=== PATIENT | male | born 1960 | race Caucasian/White ===

== ENCOUNTER 2025-02-16 10:52 | Outpatient (OUT) | payer MEDICARE, SELFPAY ==
--- OUTSIDE RECORDS SUMMARY | 2025-02-07 16:00 | XMS_ITS | Encounter Summary ---
Author Organization [facility] Healthcare Address [address] [place] [address] Care Team Providers Care Refractory Worker Name Role Phone Cayden Hernandez MD Primary Care Provider [phone] Reason for Referral * Imaging (Routine) - Authorized Specialty Diagnoses / Procedures Referred By Contac t Referred To Contact Radiology Diagnoses History of smoking 25-50 pack years Encounter for abdominal aortic aneurysm (AAA) screening Procedures Vascular US abdominal aorta anuerysm AAA screening Cayden Hernandez MD [address] [place] [address] Phone: tel: fax: [facility] [address] [place] [address] Phone: tel: fax: Referral ID Status Reason Start Date Expiration Date V isits Requested Visits Authorized [id number] Authorized 02/07/2025 08/06/2025 1 1 * Imaging (Routine) - Authorized Specialty Diagnoses / Procedures Referred By Contac t Referred To Contact Radiology Diagnoses History of smoking 25-[address] lung screening low dose Cayden Hernandez MD [address] [place] [address] [address] [place] [address] Phone: tel: fax: [facility] [address] [place] [address] Phone: tel: fax: Referral ID Status Reason Start Date Expiration Date V isits Requested Visits Authorized [id number] Authorized 02/07/2025 08/06/2025 1 1 Reason for Visit * Reason Comments Medicare Annual Wellness Visit Subsequen t Med Refill Amlodipine,trelegy,c oreg--[facility] Encounter Details Date Type Department Care Team (Late st Contact Info) Description 02/07/2025 4:00 PM EDT Office Visit [facility] [address] [facility] [address] [place] [address] Cayden Hernandez MD [address] [facility] [address] [place] [address] Routine general medical examination at health care facility (Primary Dx); ACP (advance care planning); History of smoking 25-50 pack years; Encounter for screening for malignant neoplasm of colon; Encounter for abdominal aortic aneurysm (AAA) screening; Pulmonary emphysema, unspecified emphysema type (HCC); Benign essential hypertension ; Gastroesophageal reflux disease with esophagitis without hemorrhage; Gastritis and duodenitis; Prostate cancer screening; Screening for viral disease; COPD exacerbation (HCC) Social History Tobacco Use Types Packs/Day Years Used Date Smoking Tobacco: Former Cigarettes 1.5 30 1 2014 Smokeless Tobacco: Never Alcohol Use Standard Drinks/Week Comments Not Currently 0 (1 standard drink = 0.6 oz pur e alcohol) PHQ-2 Answer Date Recorded Patient Health Questionnaire-2 Score 0 02/07/2025 Sex and Gender Information Value Date Recorded Sex Assigned at Not on file Legal Sex Male 6:58 PM EDT Gender Identity Not on file Sexual Orientation Not on file documented as of this encounter Last Filed Vital Signs Vital Sign Reading Time Taken Comments Blood Pressure 138/82 02/07/2025 3:00 PM EDT Pulse 74 02/07/2025 3:00 PM EDT Temperature - - Respiratory Rate - - Oxygen Saturation 95% 02/07/2025 3:00 PM EDT Inhaled Oxygen Concentration - - Weight 71.7 kg (158 lb) 02/07/2025 3:00 PM EDT Height 172.7 cm (5' 8 ) 02/07/2025 3:00 PM EDT Body Mass Index 24.02 02/07/2025 3:00 PM EDT documented in this encounter Functional Status * Over the past 2 weeks, how often have you been bothered by any of the following problems? Question Answer Date of Assessment Author Little interest or pleasure in doing things Not at all 02/07/2025 3:00 PM EDT Selina Dorantes LP N Feeling down, depressed, or hopeless Not at all 02/07/2025 3:00 PM EDT Selina Dorantes LP N Patient Health Questionnaire -2 Score 0 02/07/2025 3:00 PM EDT Selina Dorantes LP N documented as of this encounter Progress Notes * Cayden Hernandez MD - 02/07/2025 4:00 PM EDT Images from the original note were not included. Subjective : Chief Complaint: Nelson Cortez is an 64 y.o. male here for an annual wellness visit. I have reviewed and reconciled the history and medication list with the patient today. Current Outpatient Medications Medication Sig Dispense Refill amLODIPine (Norvasc) 5 MG tablet Take 1 tablet (5 mg) by mouth in the morning. 100 tablet 3 aspirin (ASPIR) 81 MG EC tablet Take 81 mg by mouth in the morning. carvedilol (Coreg) 25 MG tablet Take 1 tablet (25 mg) by mouth in the morning and 1 tablet (25 mg) in the evening. Take with meals. 200 tablet 3 Ejinwvjwkvm-Jmsyuixmh-Pfwmxf (Trelegy Ellipta) 100-62.5-25 MCG/ACT aerosol powder Inhale 1 Inhalation Daily 3 each 3 No current facility-administered medications for this visit. Review of Systems List of current healthcare providers: Patient Care Team: Cayden Hernandez MD as PCP - General (Internal Medicine) Medicare Annual Visit Over the past 2 weeks, how often have you been bothered by any of the following problems? Little interest or pleasure in doing things: Not at all Feeling down, depressed, or hopeless: Not at all Patient Health Questionnaire-2 Score: 0 Keith Fall Risk History of Falling, Immediate or Within 3 Months: No Secondary Diagnosis: No Ambulatory Aid: Walks without aid/bedrest/nurse assist Health Risk Assessment Form Do you need help eating, bathing, using the toilet, dressing, or getting around your home?: No Can you prepare your own meals?: Yes Can you do your own housework without help?: Yes Can you shop for groceries or clothes without help?: Yes Do you exercise for about 20 minutes 3 or more days a week?: Yes How confident are you that you can control and manage most of your health problems?: Very confident Can you mange your money, credit cards and accounts, pay bills and taxes?: Yes Cognitive Screening Three Word Registration: Apple, Watch, Rachelle Clock Drawing: Normal Clock - 2 Three Word Recall: All 3 words correct - 3 Total Score (0-5 Points): 5 Pain Assessment Pain Score: 2 Advance Care Planning Do you have a living will?: No Do you have a medical power of attorney recruiter?: No Objective : BP 138/82 Pulse 74 Ht 5' 8 Wt 158 lb SpO2 95% BMI 24.02 kg/m?? No results found. Physical Exam Constitutional: General: He is not in acute distress. Appearance: He is normal weight. He is not ill-appearing. HENT: Head: Normocephalic. Cardiovascular: Rate and Rhythm: Normal rate and regular rhythm. Heart sounds: Normal heart sounds. No murmur heard. Pulmonary: Effort: Pulmonary effort is normal. Breath sounds: Normal breath sounds. Musculoskeletal: General: No swelling. Right lower leg: No edema. Left lower leg: No edema. Neurological: Mental Status: He is alert. Psychiatric: Mood and Affect: Mood normal. Thought Content: Thought content normal. Judgment: Judgment normal. Assessment/Plan : The following health maintenance schedule was reviewed with the patient and provided in printed form in the after visit summary: Health Maintenance Topic Date Due Pneumococcal Vaccine: 65+ Years (1 of 2 - PCV) Never done Colorectal Cancer Screening 10/18/2024 Influenza Vaccine (1) 02/28/2025 Advance Care Planning Assessment/Plan Diagnoses and all orders for this visit: Routine general medical examination at health care facility - Comprehensive metabolic panel; Future - PSA - Lipid panel; Future ACP (advance care planning) History of smoking 25-50 pack years Encounter for screening for malignant neoplasm of colon - Cologuard?? colon cancer screening; Future Encounter for abdominal aortic aneurysm (AAA) screening Pulmonary emphysema, unspecified emphysema type (HCC) Benign essential hypertension - Comprehensive metabolic panel; Future - Lipid panel; Future - carvedilol (Coreg) 25 MG tablet; Take 1 tablet (25 mg) by mouth in the morning and 1 tablet (25 mg) in the evening. Take with meals. - amLODIPine (Norvasc) 5 MG tablet; Take 1 tablet (5 mg) by mouth in the morning. Gastroesophageal reflux disease with esophagitis without hemorrhage Gastritis and duodenitis Prostate cancer screening - PSA Screening for viral disease - Hepatitis C antibody; Future COPD exacerbation (HCC) - Alzmwoqolph-Rqpipwask-Swmtje (Trelegy Ellipta) 100-62.5-25 MCG/ACT aerosol powder ; Inhale 1 Inhalation Daily Orders Placed This Encounter Procedures Cologuard?? colon cancer screening Standing Status: Future Number of Occurrences: 1 Expected Date: 02/07/2025 Expiration Date: 02/07/2026 Electronically signed by Cayden Hernandez MD on February 07, 2025 documented in this encounter Miscellaneous Notes * Addendum Note - Selina Dorantes LPN - 02/07/2025 4:00 PM EDTAddended by: SELINA DORANTES on: 02/07/2025 04:34 PM Modules accepted: Orders documented in this encounter Plan of Treatment Upcoming Encounters Date Type Department Care Team (Late st Contact Info) Description 08/08/2025 11:30 AM EST Office Visit [facility] [address] [facility] [address] [place] [address] Cayden Hernandez MD [address] [facility] [address] [place] [address] Scheduled Orders Name Type Priority Associated Diagnoses Orde r Schedule Cologuard colon cancer screening Lab Routine Encounter for screening for malignant neoplasm of colon Expected: 02/07/2025 (Approximate), Expires: 02/07/2026 Comprehensive metabolic panel Lab Routine Routine general medical examination at [facility] Benign essential hypertension Expected: 02/07/2025 (Approximate), Expires: 02/07/2026 PSA Lab Routine Routine general medical examination at [facility] Prostate cancer screening Ordered: 02/07/2025 Lipid panel Lab Routine Routine general medical examination at health care facility Benign essential hypertension Expected: 02/07/2025 (Approximate), Expires: 02/07/2026 Hepatitis C antibody Lab Routine Screening for viral disease Expected: 02/07/2025 (Approximate), Expires: 02/07/2026 CT lung screening low dose Imaging Routine History of smoking 25-50 pack years Expected: 02/07/2025, Expires: 02/07/2026 Vascular US abdominal aorta anuerysm AAA screening Imaging Routine History of smoking 25-50 pack years Encounter for abdominal aortic aneurysm (AAA) screening Expected: 02/07/2025, Expires: 02/07/2026 documented as of this encounter Visit Diagnoses Diagnosis Routine general medical examination at health care facility- Primary Routine general medical examination at a health care facility ACP (advance care planning) Other specified counseling History of smoking 25-50 pack years Encounter for screening for malignant neoplasm of colon Encounter for abdominal aortic aneurysm (AAA) screening Pulmonary emphysema, unspecified emphysema type (HCC) Benign essential hypertension Essential hypertension, benign Gastroesophageal reflux disease with esophagitis without hemorrhage Gastritis and duodenitis Prostate cancer screening Special screening for malignant neoplasm of prostate Screening for viral disease Special screening examination for unspecified viral disease COPD exacerbation (HCC) Obstructive chronic bronchitis with exacerbation documented in this encounter Care Teams Refractory Worker Relationship Specialty Start Date End Date Cayden Hernandez MD [address] [place] [address] PCP - General Internal Medicine 11/05/22 documented as of this encounter
--- OUTSIDE RECORDS SUMMARY | 2025-02-16 10:57 | XMS_ITS | Encounter Summary ---
Author Organization [facility] Address [address] [place] [address] Care Team Providers Care Demo Coordinator Name Role Phone Cayden Hernandez MD Primary Care Provider [phone] Encounter Details Date Type Department Care Team (Late st Contact Info) Description 02/08/2025 Abstract [facility] [place] [facility] [address] [place] [address] [place] [id number] Cayden Hernandez MD [address] [place] [address] [place] [address] Social History Tobacco Use Types Packs/Day Years Used Date Smoking Tobacco: Former Cigarettes 1.5 30 1 985 - 2014 Smokeless Tobacco: Never Alcohol Use Standard [...] on file documented as of this encounter Plan of Treatment Upcoming Encounters Date Type Department Care Team (Late st Contact Info) Description 08/08/2025 11:30 AM EST Office Visit [facility] [place] [facility] [address] [place] [address] [place] [address] Cayden Hernandez MD [address] [place] [address] [place] [address] documented as of this encounter Visit Diagnoses Not on filedocumented in this encounter Care Teams Demo Coordinator Relationship Specialty Start Date End Date Cayden Hernandez MD [address] [place] [address] [place] [address] PCP - General Internal Medicine 11/05/22 documented as of this encounter
--- OUTSIDE RECORDS SUMMARY | 2025-02-16 10:57 | XMS_ITS | Encounter Summary ---
Author Organization [facility] Address [address] [place] [address] Care Team Providers Care Tipping Machine Operator Automatic Name Role Phone Cayden Hernandez MD Primary Care Provider [phone] Encounter Details Date Type Department Care Team (Late st Contact Info) Description 02/07/2025 Bamboo flowsheet [facility] [place] [facility] [address] [place] [id number] Cayden Hernandez MD [address] [place] [address] [place] [address] Social History Tobacco Use Types Packs/Day Years [...] on file documented as of this encounter Functional Status * Over the past 2 weeks, how often have you been bothered by any of the following problems? Question Answer Date of Assessment Author Little interest or pleasure in doing things Not at all 02/07/2025 3:00 PM JAIRT Selina Flynn LP N Feeling down, depressed, or hopeless Not at all 02/07/2025 3:00 PM EDT Selina Flynn LP N Patient Health Questionnaire -2 Score 0 02/07/2025 3:00 PM EDT Selina Flynn LP N documented as of this encounter Plan of Treatment Upcoming Encounters Date Type Department Care Team (Late st Contact Info) Description 08/08/2025 11:30 AM EST Office Visit [facility] [place] [facility] [address] [facility] [address] [place] [address] Cayden Hernandez MD [address] [facility] [address] [place] [address] documented as of this encounter Visit Diagnoses Not on filedocumented in this encounter Care Teams Tipping Machine Operator Automatic Relationship Specialty Start Date End Date Cayden Hernandez MD [address] [facility] [address] [place] [address] PCP - General Internal Medicine 11/05/22 documented as of this encounter
--- OUTSIDE RECORDS SUMMARY | 2025-02-16 10:57 | XMS_ITS | Encounter Summary ---
Author Organization [facility] Address [address] [place] [address] Care Team Providers Care Radiation Therapy Technician Name Role Phone Cayden Hernandez MD Primary Care Provider [phone] Encounter Details Date Type Department Care Team (Latest Contact Info) Description 02/07/2025 Travel Social History Tobacco Use Types Packs/Day Years Used Date Smoking Tobacco: Former Cigarettes 1.5 30 2014 Smokeless Tobacco: Never Alcohol Use Standard [...] 3:00 PM EDT Selina Flynn LP N Feeling down, depressed, or hopeless Not at all 02/07/2025 3:00 PM EDT Selina Flynn LP N Patient Health Questionnaire -2 Score 0 02/07/2025 3:00 PM EDT Selina Flynn LP N documented as of this encounter Plan of Treatment Upcoming Encounters Date Type Department Care Team (Late st Contact Info) Description 08/08/2025 11:30 AM EST Office Visit [facility] [place] [facility] [address] [place] [address] [place] [address] Cayden Hernandez MD [address] [place] [address] [place], [place] [id number] documented as of this encounter Visit Diagnoses Not on filedocumented in this encounter Care Teams Radiation Therapy Technician Relationship Specialty Start Date End Date Cayden Hernandez MD 112 [facility] [address] [place] [address] PCP - General Internal Medicine 11/05/22 documented as of this encounter
--- OUTSIDE RECORDS SUMMARY | 2025-02-16 10:57 | XMS_ITS | Clinical Summary ---
Author Organization [facility] Healthcare Address [address] [place] [address] Care Team Providers Care Supervisor Kennel Name Role Phone Cayden Hernandez MD Primary Care Provider Allergies Active Allergy Reactions Criticality Noted Date Comments Hydrochlorothiazide-Triamter john 01/04/2019 Other Reaction(s): renal Insuf Irbesartan 05/04/2019 Kidney failure Lisinopril 01/04/2019 Other Reaction(s): Renal insuf Sulfa Antibiotics Rash Low 2018 Medications aspirin (ASPIR) 81 MG EC tablet Take 81 mg by mouth in the morning. Active Fluticasone-Ume clidin-Vilant (Trelegy Ellipta) 100-62.5-25 MCG/ACT aerosol powderIndicatio ns:COPD exacerbation (HCC) Inhale 1 Inhalation Daily 3 each 3 02/08/20 25 Active carvedilol (Coreg) 25 MG tabletIndicatio ns:Benign essential hypertension Take 1 tablet (25 mg) by mouth in the morning and 1 tablet (25 mg) in the evening. Take with meals. 200 tablet 3 02/08/20 25 Active amLODIPine (Norvasc) 5 MG tabletIndicatio ns:Benign essential hypertension Take 1 tablet (5 mg) by mouth in the morning. 100 tablet 3 02/08/20 25 Active pantoprazole (ProtoNix) 40 MG EC tabletIndicatio ns:Gastroesopha geal reflux disease without esophagitis Take 1 tablet (40 mg) by mouth in the morning and 1 tablet (40 mg) before bedtime. 200 tablet 3 03/24/20 23 025 Discontinued carvedilol (Coreg) 25 MG tabletIndicatio ns:Benign essential hypertension Take 1 tablet (25 mg) by mouth in the morning and 1 tablet (25 mg) in the evening. Take with meals. 200 tablet 3 04/14/20 24 025 Discontinued(R eorder) amLODIPine (Norvasc) 5 MG tabletIndicatio ns:Benign essential hypertension Take 1 tablet (5 mg) by mouth in the morning. 100 tablet 3 04/14/20 24 025 Discontinued(R eorder) Fluticasone-Ume clidin-Vilant (Trelegy Ellipta) 100-62.5-25 MCG/ACT aerosol powderIndicatio ns:COPD exacerbation (HCC) Inhale 1 Inhalation Daily 3 each 3 04/14/20 24 025 Discontinued(R eorder) Active Problems Problem Noted Date Diagnosed Date Pulmonary emphysema 02/07/2025 Esophageal dysphagia 12/31/2022 Gastritis 12/31/2022 Gastroesophageal reflux disease 12/31/2022 Gastritis and duodenitis 12/31/2022 Hyperinflation of lungs 12/31/2022 Primary insomnia 12/31/2022 Benign essential hypertension 12/30/2022 Resolved Problems Problem Noted Date Diagnosed Date Resolved Date COPD exacerbation 12/31/2022 02/07/2025 Encounters Date Type Department Care Team Description 02/08/2025 Abstract [facility] [place] [address] [place] [address] Cayden Hernandez MD 02/08/2025 Abstract [facility] [place] [address] [place] [address] Cayden Hernandez MD 02/07/2025 4:00 PM EDT Office Visit [facility] [address] [place] [address] Cayden Hernandez MD Routine general medical examination at health care [...] Screening for viral disease; COPD exacerbation (HCC) 02/07/2025 Bamboo flowsheet [facility] [place] [facility] [address] [facility] [address] [place] [phone] Cayden Hernandez MD 02/07/2025 Travel from Last 3 Months Family History Medical History Relation Name Comments COPD Father Cancer Mother Relation Name Status Comments Father Mother Social History Tobacco Use Types Packs/Day Years Used Date Smoking Tobacco: Former Cigarettes 1.5 30 1 2014 Smokeless Tobacco: Never Tobacco Cessation:Counseling Given: Not Answered Alcohol Use Standard Drinks/Week Comments Not Currently 0 (1 standard drink = 0.6 oz pur e alcohol) PHQ-2 Answer Date Recorded Patient Health Questionnaire-2 Score 0 02/07/2025 Sex and Gender Information Value Date Recorded Sex Assigned at Not on file Legal Sex Male 6:58 PM EDT Gender Identity Not on file Sexual Orientation Not on file Last Filed Vital Signs Vital Sign Reading [...] Mass Index 24.02 02/07/2025 3:00 PM EDT Plan of Treatment Upcoming Encounters Date Type Department Care Team (Late st Contact Info) Description 08/08/2025 11:30 AM EST Office Visit [facility] [place] [facility] [address] [facility] [address] [place] [phone] Cayden Hernandez MD [address] [facility] [address] [place] [address] Health Maintenance Due Date Last Done Comments CT Colonography 1960 Colonoscopy 1960 FIT 1960 FOBT 1960 Lung Cancer Screening Shared Decision Making 1960 Sigmoidoscopy 1960 Pneumococcal Vaccine: 65+ Ye ars (1 of 2 - PCV) 10/11/1978 Colorectal Cancer Screening 10/18/2024 FIT-DNA 10/18/2024 10/18/2021, 09/29, 08/27/2018, Additional history exists Influenza Vaccine (#1) 2025 Medicare Annual Wellness (AWV) 02/07/2026 02/07/2025 Procedures Procedure Name Priority Date/Time Associated Diagnosis Comments LAB COLOGUARD COLON CANCER SCREEN Routine 10/18/2021 from Last 3 Months or Most Recently Relevant to Health Maintenance Results * Cologuard?? colon cancer screening (10/18/2021) COLOGUARD RESULT REPORTABLE Negative Negative [facility] Comment: NEGATIVE TEST RESULT. A negative Cologuard result indicates a low likelihood that a colorectal cancer (CRC) or advanced adenoma (adenomatous polyps with more advanced pre-malignant features) is present. The chance that a person with a negative Cologuard test has a colorectal cancer is less than 1 in 1500 (negative predictive value >99.9%) or has an advanced adenoma is less than 5.3% (negative predictive value 94.7%). These data are based on a prospective cross-sectional study of 10,000 individuals at average risk for colorectal cancer who were screened with both Cologuard and colonoscopy. (Evelyn Littlejohn et al, N Engl J Med 2014;370(14):3409-8529) The normal value (reference range) for this assay is negative. COLOGUARD RE-SCREENING RECOMMENDATION: Periodic colorectal cancer screening is an important part of preventive healthcare for asymptomatic individuals at average risk for colorectal cancer. Following a negative Cologuard result, the [place] Cancer Society and U.S. Multi-Society Task Force screening guidelines recommend a Cologuard re-screening interval of 3 years. References: [place] [employer] Guideline for Colorectal Cancer Screening: https://www.cancer.org/cancer/ymevb-onnuem-feiiaq/liivxawoq-hlfhfumnp-blrmovw/ac s-rec ommendations.html.; Marc HERNANDES, Soni CR, Andria DONG, Colorectal Cancer Screening: Recommendations for Physicians and Patients from the U.S. Multi-Society Task Force on Colorectal Cancer Screening , Am J Gastroenterology 2017; 112:4306-5957. TEST DESCRIPTION: Composite algorithmic analysis of stool DNA-biomarkers with hemoglobin immunoassay. Quantitative values of individual biomarkers are not reportable and are not associated with individual biomarker result reference ranges. Cologuard is intended for colorectal cancer screening of adults of either sex, 45 years or older, who are at average-risk for colorectal cancer (CRC). Cologuard has been approved for use by the U.S. FDA. The performance of Cologuard was established in a cross sectional study of average-risk adults aged 50-84. Cologuard performance in patients ages 45 to 49 years was estimated by sub-group analysis of near-age groups. Colonoscopies performed for a positive result may find as the most clinically significant lesion: colorectal cancer [4.0%], advanced adenoma (including sessile serrated polyps greater than or equal to 1cm diameter) [20%] or non- advanced adenoma [31%]; or no colorectal neoplasia [45%]. These estimates are derived from a prospective cross-sectional screening study of 10,000 individuals at average risk for colorectal cancer who were screened with both Cologuard and colonoscopy. (Evelyn Scales al, N Engl J Med 2014;370(14):7092-3309.) Cologuard may produce a false negative or false positive result (no colorectal cancer or precancerous polyp present at colonoscopy follow up). A negative Cologuard test result does not guarantee the absence of CRC or advanced adenoma (pre-cancer). The current Cologuard screening interval is every 3 years. ([place] Cancer Society and U.S. Multi-Society Task Force). Cologuard performance data in a 10,000 patient pivotal study using colonoscopy as the reference method can be accessed at the following location: www.Mobile Messenger.com/results. Additional description of the Cologuard test process, warnings and precautions can be found at www.CompBluerd.com. 10/18/2021 us Cayden Hernandez MD LAB [facility] Final Result [facility] from Last 3 Months or Most Recently Relevant to Health Maintenance Insurance MEDICARE Care Teams Supervisor Kennel Relationship Specialty Start Date End Date Cayden Hernandez MD [address] [facility] [address] [place] [address] PCP - General Internal Medicine 11/05/22
--- OUTSIDE RECORDS SUMMARY | 2025-02-16 10:57 | XMS_ITS | Clinical Summary ---
Author Organization [facility] Address [address] [place] [address] Care Team Providers Care Travel Registered Nurse Nicu Name Role Phone Unavailable Primary Care Provider Unavailabl e Social History Tobacco Use Types Packs/Day Years Used Date Smoking Tobacco: Never Assessed Sex and Gender Information Value Date Recorded Sex Assigned at Not on file Legal Sex Male 10:15 PM EDT Gender Identity Not on file Sexual Orientation Not on file Plan of Treatment Not on file
--- OUTSIDE RECORDS SUMMARY | 2025-02-16 10:57 | XMS_ITS | Encounter Summary ---
Author Organization [facility] Address [address] [place] [address] Care Team Providers Care Installation And Service Technician Name Role Phone Cayden Hernandez MD Primary Care Provider Encounter Details Date Type Department Care Team (Late st Contact Info) Description 02/08/2025 Abstract [facility] [address] [place] [phone] Cayden Hernandez MD [address] [place] [address] Social History Tobacco Use Types Packs/Day Years [...] [address] [place] [phone] Cayden Hernandez MD [address] [place] [address] documented as of this encounter Visit Diagnoses Not on filedocumented in this encounter Care Teams Installation And Service Technician Relationship Specialty Start Date End Date Cayden Hernandez MD [address] [place] [address] PCP - General Internal Medicine 11/05/22 documented as of this encounter
--- OUTSIDE RECORDS SUMMARY | 2025-02-16 10:57 | XMS_ITS | Encounter Summary ---
Author Organization [facility] Address [address] [place] [address] Care Team Providers Care Lip Cutter Name Role Phone Cayden Hernandez MD Primary Care Provider [phone] Cayden Hernandez MD Unavailable [phone] Encounter Details Date Type Department Care Team (Late Contact Info) Description 04/06/2023 Abstract [facility] [place] [facility] [address] [place] [phone] Cayden Hernandez MD [address] [place] [address] Social History Tobacco Use Types Packs/Day Years Used Date Smoking Tobacco: Never Assessed Sex and Gender Information Value Date Recorded Sex Assigned at Not on file Legal Sex Male 6:58 PM EDT Gender Identity Not on file Sexual Orientation Not on file documented as of this encounter Plan of Treatment Upcoming Encounters Date Type Department Care Team (Late Contact Info) Description 08/08/2025 11:30 AM EST Office Visit [facility] [place] [facility] [address] [place] [address] Cayden Hernandez MD [address] [place] [address] documented as of this encounter Visit Diagnoses Not on filedocumented in this encounter Care Teams Lip Cutter Relationship Specialty Start Date End Date Cayden Hernandez MD [address] [place] [address] PCP - General Internal Medicine 11/05/22 Cayden Hernandez MD 112 [facility] [address] [place] [id number] PCP - Medical [place] [employer] 02/28/23 11/11/24 documented as of this encounter
--- OUTSIDE RECORDS SUMMARY | 2025-02-16 10:57 | XMS_ITS | Encounter Summary ---
Author Organization [facility] Address [address] [place] [address] Care Team Providers Care Home Lending Officer Name Role Phone Cayden Hernandez MD Primary Care Provider [phone] Cayden Hernandez MD Unavailable [phone] Encounter Details Date Type Department Care Team (Late Contact Info) Description 12/10/2022 Abstract [facility] [place] [facility] [address] [place] [phone] Felicita Cee NP [address] [place] [address] Social History Tobacco Use Types Packs/Day Years [...] [facility] [address] [place] [address] Cayden Hernandez MD [address] [place] [address] documented as of this encounter Visit Diagnoses Not on filedocumented in this encounter Care Teams Home Lending Officer Relationship Specialty Start Date End Date Cayden Hernandez MD [address] [place] [address] PCP - General Internal Medicine 11/05/22 Cayden Hernandez MD 112 [facility] [address] [place] [id number] PCP - Medical [place] [employer] 02/28/23 11/11/24 documented as of this encounter
--- NOTE | 2025-02-16 11:04 | US_ITS ---
[address] [address] Patient Name: PHUONG PHELPS MRN: [id number] date: 1960 Sex: M Assigned Patient Location: US Current Patient Location: US Accession/Order Number: [id number] Exam Date: 02/16/2025 13:42 Report Date: 02/16/2025 13:44 At the request of: ELIGIO TEE Procedure: US abdominal aortic aneurysm Ultrasound of the abdominal aorta HISTORY: Current smoker. Smoking for 30 years. Maximal AP diameter of the aorta 2.5 cm. Maximal transverse diameter 2.3 cm. Right iliac artery maximal diameter of 1.2 cm. Left iliac artery maximal diameter 0.9 cm. Atherosclerotic plaquing throughout the aorta. US/US abdominal aortic aneurysm IMPRESSION: No abdominal aortic aneurysm. Impression dictated by: Rizwan Garcia M.D. 02/16/2025 1:44 PM Dictation Location: [place] [address] Electronically authenticated by: [id number] Y Date: 02/16/2025 13:44
== END 2025-02-16 10:53 | disposition home or self-care (01) ==
LOC: US 10:55
PROVIDERS: PCP Internal Medicine; Visit Provider Internal Medicine
DX: Z13.6 Encounter for screening for cardiovascular disorders (principal); Z87.891 Personal history of nicotine dependence
CPT/HCPCS: 76775